=== PATIENT | male | born 1975 | race African-American/Black ===

== ENCOUNTER 2016-11-28 08:42 | Emergency (ER) | payer SELFPAY ==
[2016-11-28] MEDS ORDERED: NORMAL SALINE 1000 ML 1,000 ML IV ONE (09:24)
[2016-11-28] MEDS ORDERED: KETOROLAC TROMETHAMINE INJ/PF 30 MG/1 ML SDV IV ONE (09:25)
[2016-11-28] MEDS ORDERED: ONDANSETRON HCL INJ/PF 4 MG/2 ML SDV IV ONE (09:25)
--- NOTE | 2016-11-28 09:29 | ER Document Report ---
ED Medical Screen (RME) - General Chief Complaint: Abdominal Pain Stated Complaint: LEFT SIDE PAIN,VOMITING Time Seen by Provider: 11/28/16 09:24 Mode of Arrival: Wheelchair Information source: Patient, Relative TRAVEL OUTSIDE OF THE [place] IN LAST 30 DAYS: No - HPI Patient complains to provider of: L flank pain Onset: This morning - pt with acute onset of L flank pain radiating to L inguinal area with N and vomiting times 2 - Related Data Allergies/Adverse Reactions: No Known Allergies Allergy (Unverified 04/12/11 11:39) Past Medical History - Social History Chew tobacco use (# tins/day): No Frequency of alcohol use: None Drug Abuse: None Renal/ Medical History: Denies: Hx Peritoneal Dialysis Surgical Hx: Negative - Immunizations Hx Diphtheria, Pertussis, Tetanus Vaccination: Yes - unknown Physical Exam - Vital signs Vitals: Temp Pulse Resp BP Pulse Ox 98.1 F 61 20 143/88 H 100 11/28/16 08:47 11/28/16 08:47 11/28/16 08:47 11/28/16 08:47 11/28/16 08:47 Course - Vital Signs Vital signs: Temp Pulse Resp BP Pulse Ox 98.1 F 61 20 143/88 H 100 11/28/16 08:47 11/28/16 08:47 11/28/16 08:47 11/28/16 08:47 11/28/16 08:47
--- NOTE | 2016-11-28 09:59 | RADIOLOGY REPORT (SQ) ---
EXAM DESCRIPTION: CT LTD RENAL STONE PROTOCOL ON COMPLETED DATE/TIME: 11/28/2016 9:36 am REASON FOR STUDY: L inguinal pain COMPARISON: None. TECHNIQUE: CT scan of the abdomen and pelvis performed without intravenous or oral contrast. Images reviewed with lung, soft tissue, and bone windows. Reconstructed coronal and sagittal MPR images revi ewed. All images stored on PACS. All CT scanners at this facility use dose modulation, iterative reconstruction, and/or weight based d osing when appropriate to reduce radiation dose to as low as reasonably achievable (ALARA). [facility]: Dose Right [facility]: CareDose [facility]: Dose Right [facility]: Teradose 4D [facility]: [employer] RADIATION DOSE: Up-to-date CT equipment and radiation dose reduction techniques were employed. CTDIv ol: 18.4 mGy. DLP: 1143 mGy-cm.mGy. LIMITATIONS: None. FINDINGS: LOWER CHEST: Reticular nodular changes, likely chronic. NON-CONTRASTED LIVER, SPLEEN, ADRENALS: Evaluation limited by lack of IV contrast. No identified sign ificant masses. PANCREAS: No masses. No peripancreatic inflammatory changes. GALLBLADDER: No identified stones by CT criteria. No inflammatory changes to suggest cholecystitis. RIGHT KIDNEY AND URETER: No suspicious masses. Assessment limited by lack of IV contrast. No signif icant calcifications. No hydronephrosis or hydroureter. LEFT KIDNEY AND URETER: No suspicious masses. Assessment limited by lack of IV contrast. 2 mm dista l left ureteral stone. Minimal obstructive changes. AORTA AND RETROPERITONEUM: No aneurysm. No retroperitoneal masses or adenopathy. BOWEL AND PERITONEAL CAVITY: No obvious masses or inflammatory changes. No free fluid. APPENDIX: Normal. PELVIS, BLADDER, AND ABDOMINAL WALL:No abnormal masses. No free fluid. Bladder normal. BONES: No significant findings. OTHER: No other significant finding. IMPRESSION: 2 mm distal left ureteral stone with minimal obstructive changes. COMMENT: Quality ID # [id number]: Final reports with documentation of one or more dose reduction techniques (e.g., Automated exposure control, adjustment of the mA and/or kV according to patient size, use of iterative reconstruction technique) TECHNICAL DOCUMENTATION: JOB ID: [id number]- All Rights Reserved
[2016-11-28 10:04] LABS: ABSOLUTE BASOPHILS # (AUTO) 0.1 10^3/uL (0.0-0.2); ABSOLUTE LYMPHOCYTES (AUTO) 1.5 10^3/uL (0.5-4.7); ABSOLUTE MONOCYTES (AUTO) 0.3 10^3/uL (0.1-1.4); ABSOLUTE NEUT (AUTO) 4.6 10^3/uL (1.7-8.2); BASOPHILS % (AUTO) 0.9 % (0-2); EOSINOPHILS % (AUTO) 0.6 % (0-6); HEMATOCRIT 46.8 % (37.9-51.0); HEMOGLOBIN 16.3 g/dL (13.5-17.0); HGB HCT DIFFERENCE 2.1; LYMPHOCYTES % (AUTO) 22.8 % (13-45); MEAN CORPUSCULAR HEMOGLOBIN 30.4 pg (27.0-33.4); MEAN CORPUSCULAR HGB CONC 34.8 g/dL (32.0-36.0); MEAN CORPUSCULAR VOLUME 87 fl (80-97); MONOCYTES % (AUTO) 4.8 % (3-13); RED BLOOD COUNT 5.37 10^6/uL (4.35-5.55); RED CELL DISTRIBUTION WIDTH 13.7 % (11.5-14.0); SEGMENTED NEUTROPHILS % (AUTO) 70.9 % (42-78); WHITE BLOOD COUNT 6.5 10^3/uL (4.0-10.5)
[2016-11-28] MEDS ORDERED: HYDROMORPHONE HCL INJ/PF 2 MG/ML AMPULE IV ONE (10:17)
--- NOTE | 2016-11-28 10:19 | ER Document Report ---
ED GI/ - General Chief Complaint: Abdominal Pain Stated Complaint: LEFT SIDE PAIN,VOMITING Time Seen by Provider: 11/28/16 09:24 Mode of Arrival: Wheelchair Information source: Patient TRAVEL OUTSIDE OF THE [place] IN LAST 30 DAYS: No - HPI Patient complains to provider of: Flank pain, Vomiting Onset: This morning Timing/Duration: Sudden Quality of pain: Sharp, Stabbing Severity at maximum: Severe Severity in ED: Severe Location: Left flank Associated symptoms: Nausea, Vomiting Exacerbated by: Denies Relieved by: Denies Similar symptoms previously: No Recently seen / treated by doctor: No Notes: 11/28/16 11:47 Patient is a 41-year-old male presenting to the emergency room today for complaints of sudden onset severe left-sided flank pain that is intermittent in nature, and associated with nausea and vomiting, he denies any fever or chills, no diarrhea, had a normal bowel movement today, no dysuria or hematuria, no history of similar symptoms previously - Related Data Allergies/Adverse Reactions: No Known Allergies Allergy (Unverified 04/12/11 11:39) Past Medical History - General Information source: Patient, Relative - Social History Smoking Status: Unknown if Ever Smoked Chew tobacco use (# tins/day): No Frequency of alcohol use: None Drug Abuse: None Family History: Reviewed & Not Pertinent Renal/ Medical History: Denies: Hx Peritoneal Dialysis Surgical Hx: Negative - Immunizations Hx Diphtheria, Pertussis, Tetanus Vaccination: Yes - unknown Review of Systems - Review of Systems Constitutional: No symptoms reported EENT: No symptoms reported Cardiovascular: No symptoms reported Respiratory: No symptoms reported Gastrointestinal: See HPI Genitourinary: See HPI Male Genitourinary: No symptoms reported Musculoskeletal: No symptoms reported Skin: No symptoms reported Hematologic/Lymphatic: No symptoms reported Neurological/Psychological: No symptoms reported -: Yes All other systems reviewed and negative Physical Exam - Vital signs Vitals: Temp Pulse Resp BP Pulse Ox 98.1 F 61 20 143/88 H 100 11/28/16 08:47 11/28/16 08:47 11/28/16 08:47 11/28/16 08:47 11/28/16 08:47 Interpretation: Normal - General General appearance: Appears well, Alert - HEENT Head: Normocephalic, Atraumatic Eyes: Normal Pupils: PERRL - Respiratory Respiratory status: No respiratory distress Chest status: Nontender Breath sounds: Normal Chest palpation: Normal - Cardiovascular Rhythm: Regular Heart sounds: Normal auscultation Murmur: No - Abdominal Inspection: Normal Distension: No distension Bowel sounds: Normal Tenderness: Nontender Organomegaly: No organomegaly - Back Back: Normal, Nontender - Extremities General upper extremity: Normal inspection, Nontender, Normal color, Normal ROM , Normal temperature General lower extremity: Normal inspection, Nontender, Normal color, Normal ROM , Normal temperature, Normal weight bearing. No: Carlitos's sign - Neurological Neuro grossly intact: Yes Cognition: Normal Orientation: AAOx4 Darya Coma Scale Eye Opening: Spontaneous Somis Coma Scale Verbal: Oriented Darya Coma Scale Motor: Obeys Commands Darya Coma Scale Total: 15 Speech: Normal Motor strength normal: LUE, RUE, LLE, RLE Sensory: Normal - Psychological Associated symptoms: Normal affect, Normal mood - Skin Skin Temperature: Warm Skin Moisture: Dry Skin Color: Normal Course - Re-evaluation Re-evalutation: 11/28/16 11:02 Resting comfortably on stretcher, he reports significant pain relief after receiving IV fluids and medications, lab and imaging findings were discussed with patient at bedside which include a mildly elevated bilirubin, however patient has no pain or tenderness on the right side of the abdomen, CT scan is consistent with a 2 mm stone in the left ureter, patient was given prescriptions for appropriate medications for treatment of a kidney stone, advised to follow-up with a primary care provider or return if symptoms worsen, patient and spouse at bedside acknowledge understanding and agreement with this plan - Vital Signs Vital signs: Temp Pulse Resp BP Pulse Ox 98.5 F 72 16 123/60 94 11/28/16 11:14 11/28/16 11:14 11/28/16 11:14 11/28/16 11:14 11/28/16 11:14 - Laboratory Result Diagrams: 11/28/16 09:56 11/28/16 09:56 Laboratory results interpreted by me: 11/28/16 11/28/16 09:56 10:27 Glucose 112 H Calcium 10.4 H Total Bilirubin 1.5 H Direct Bilirubin 0.6 H Urine Protein 30 H Urine Blood MODERATE H - Diagnostic Test Radiology reviewed: Image reviewed, Reports reviewed Discharge - Discharge Clinical Impression: Kidney stone on left side Condition: Stable Disposition: HOME, SELF-CARE Instructions: Kidney Stone ([facility]), Oral Narcotic Medication ([facility]) Additional Instructions: Follow up with your primary care provider in one to 2 days. Return to the emergency room immediately if symptoms worsen or any additional concerns. Prescriptions: Ondansetron [Zofran Odt 4 mg Tablet] 1 - 2 tab PO Q4H #10 tab.rapdis Oxycodone HCl/Acetaminophen [Percocet 5-325 mg Tablet] 1 - 2 tab PO ASDIR PRN # 20 tablet PRN Reason: Tamsulosin HCl [Flomax 0.4 mg Cap.sr] 0.4 mg PO DAILY #7 cap.sr.24h Forms: Return to Work
[2016-11-28 10:38] LABS: ALANINE AMINOTRANSFERASE 42 U/L (21-72); ALBUMIN 4.6 g/dL (3.5-5.0); ALKALINE PHOSPHATASE 95 U/L (38-126); ANION GAP 14 (5-19); ASPARTATE AMINO TRANSFERASE 35 U/L (17-59); BILIRUBIN,DIRECT 0.6 mg/dL (0.0-0.4); BILIRUBIN,TOTAL 1.5 mg/dL (0.2-1.3); BLOOD UREA NITROGEN 15 mg/dL (7-20); CALCIUM 10.4 mg/dL (8.4-10.2); CARBON DIOXIDE 23 mmol/L (22-30); CHLORIDE 105 mmol/L (98-107); CREATININE RESULT 1.11 mg/dL (0.52-1.25); GLUCOSE 112 mg/dL (75-110); POTASSIUM 4.9 mmol/L (3.6-5.0); SODIUM 142.1 mmol/L (137-145); TOTAL PROTEIN 8.2 g/dL (6.3-8.2)
[2016-11-28 10:44] LABS: APPEARANCE,URINE SLIGHTLY-CLOUDY; BILIRUBIN,URINE NEGATIVE (NEGATIVE); GLUCOSE, URINE NEGATIVE (NEGATIVE); KETONES,URINE NEGATIVE (NEGATIVE); LEUKOCYTE ESTERASE,URINE NEGATIVE (NEGATIVE); NITRITE,URINE NEGATIVE (NEGATIVE); PROTEIN,URINE 30 mg/dL (NEGATIVE); URINE SPECIFIC GRAVITY 1.019; UROBILINOGEN,URINE NEGATIVE mg/dL (<2.0)
[2016-11-28 11:15] VITALS: BP 123/60
== END 2016-11-28 11:14 | disposition home or self-care (01) ==
LOC: ER 08:42
DX: N20.0 Calculus of kidney (principal); R10.9 Unspecified abdominal pain; R11.2 Nausea with vomiting, unspecified
CPT/HCPCS: 99284; 96361; 96374; 96375; 36415; 85025; 80053; 81001; 76380; J1885; J1170; J2405; J7030